=== PATIENT | female | born 1980 | race Caucasian/White ===

== ENCOUNTER 2019-11-20 17:39 | Emergency (ER) | payer SELFPAY ==
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
[2019-11-20] MEDS ORDERED: Acetaminophen TAB* 325 MG PO ONE (20:45)
[2019-11-20 21:03] VITALS: BP 128/90
== END 2019-11-20 20:56 | disposition home or self-care (01) ==
LOC: ED 17:39
DX: R07.89 Other chest pain (principal); S20.219A Contusion of unspecified front wall of thorax, initial encounter; R10.9 Unspecified abdominal pain; V49.88XA Car occupant (driver) (passenger) injured in other specified transport accidents, initial encounter; Y92.9 Unspecified place or not applicable
CPT/HCPCS: 71046; 99282; A9270-GY